=== PATIENT | male | born 1990 | race Two or more races ===

== ENCOUNTER 2016-10-12 13:12 | Emergency (ER) | payer SELFPAY ==
[2016-10-12 13:23] VITALS: BP 124/67
--- NOTE | 2016-10-12 13:32 | ER Document Report ---
ED Medical Screen (RME) - General Stated Complaint: SORE THROAT,EAR PAIN Notes: patient with sore throat with dysphgia and and b/l ear pain, nonprod cough. onset 2 days ago, denies nasal congestion, sinus congestion, productive cough, fevers (+) influenza vaccine still has his tonsils I have greeted and performed a rapid initial assessment of this patient. A comprehensive ED assessment and evaluation of the patient, analysis of test results and completion of the medical decision making process will be conducted by additional ED providers. TRAVEL OUTSIDE OF THE [place] IN LAST 30 DAYS: No - Related Data Allergies/Adverse Reactions: No Known Allergies Allergy (Verified 10/12/16 13:29) Past Medical History Neurological Medical History: Reports: Hx Migraine Infectious Medical History: Reports: Hx HIV - Immunizations Hx Diphtheria, Pertussis, Tetanus Vaccination: No Physical Exam - Vital signs Vitals: Temp Pulse Resp BP 97.9 F 58 L 16 124/67 10/12/16 13:22 10/12/16 13:22 10/12/16 13:22 10/12/16 13:22 Course - Vital Signs Vital signs: Temp Pulse Resp BP Pulse Ox 97.9 F 58 L 16 124/67 10/12/16 13:22 10/12/16 13:22 10/12/16 13:22 10/12/16 13:22
--- NOTE | 2016-10-12 14:37 | ER Document Report ---
ED ENT - General Time seen by provider: 14:05 Mode of Arrival: Ambulatory Information source: Patient TRAVEL OUTSIDE OF THE [place] IN LAST 30 DAYS: No - HPI Patient complains to provider of: Ear problem, Throat problem Onset: Other - see HPI note Associated symptoms: Cough, Ear pain, Sore throat. denies: Congestion, Fever - General Chief Complaint: Sore Throat Stated Complaint: SORE THROAT,EAR PAIN Notes: Patient is a 26-year-old male presenting to the emergency department with complaints of bilateral ear pain, sore throat, and cough. Patient states that he has had these symptoms for the past 2 days. Patient states his cough is dry. Patient's pain is exacerbated with swallowing. Patient denies any fever or congestion. Patient states he received a flu shot on August 16, 2017. Patient states that his physicians are in [place], [place]. Patient has no known allergies. (DORCAS REYES) - Related Data Allergies/Adverse Reactions: No Known Allergies Allergy (Verified 10/12/16 13:29) Past Medical History - General Information source: Patient - Social History Smoking Status: Never Smoker Cigarette use (# per day): No Chew tobacco use (# tins/day): No Frequency of alcohol use: None Drug Abuse: None Family History: None Patient has suicidal ideation: No Patient has homicidal ideation: No Neurological Medical History: Reports: Hx Migraine Infectious Medical History: Reports: Hx HIV Surgical Hx: Negative - Immunizations Hx Diphtheria, Pertussis, Tetanus Vaccination: No Hx Pneumococcal Vaccination: 10/25/13 Review of Systems - Review of Systems Constitutional: No symptoms reported. denies: Fever EENT: See HPI, Ear pain, Throat pain. denies: Nose congestion Cardiovascular: No symptoms reported Respiratory: See HPI, Cough Gastrointestinal: No symptoms reported Genitourinary: No symptoms reported Male Genitourinary: No symptoms reported Musculoskeletal: No symptoms reported Skin: No symptoms reported Hematologic/Lymphatic: No symptoms reported Neurological/Psychological: No symptoms reported -: Yes All other systems reviewed and negative Physical Exam - Vital signs Interpretation: Normal - General General appearance: Appears well, Alert In distress: Mild - HEENT Head: Normocephalic, Atraumatic Eyes: Normal Pupils: PERRL Ears: Normal External canal: Normal Tympanic membrane: Other - fluid behind the TMs bilaterally Nasal: Normal Mouth/Lips: Normal Mucous membranes: Moist Pharynx: Erythema. No: Exudate, Tonsillar hypertrophy - Respiratory Respiratory status: No respiratory distress Chest status: Nontender Breath sounds: Normal Chest palpation: Normal - Cardiovascular Rhythm: Regular Heart sounds: Normal auscultation Murmur: No - Abdominal Inspection: Normal Distension: No distension Bowel sounds: Normal Tenderness: Nontender Organomegaly: No organomegaly - Back Back: Normal, Nontender - Extremities General upper extremity: Normal inspection, Normal ROM, Normal strength General lower extremity: Normal inspection, Normal ROM, Normal strength - Neurological Neuro grossly intact: Yes Cognition: Normal Orientation: AAOx4 Gallant Coma Scale Eye Opening: Spontaneous Gallant Coma Scale Verbal: Oriented Gallant Coma Scale Motor: Obeys Commands Alexander Coma Scale Total: 15 Speech: Normal - Psychological Associated symptoms: Normal affect, Normal mood - Skin Skin Temperature: Warm Skin Moisture: Dry Course - Re-evaluation Re-evalutation: 10/12/16 15:14 Patient with stable vitals. Symptoms are consistent with upper respiratory infection. Patient is instructed to take Sudafed for the fluid behind the ears. No evidence for strep or influenza. Patient is instructed to follow-up with his doctor. He is HIV positive and his CD4 counts have been very good lately. Stable for discharge. Agrees with plan. Return if any worsening or concerning symptoms (ELENO SALAS) - Vital Signs Vital signs: Temp Pulse Resp BP Pulse Ox 97.9 F 58 L 16 124/67 10/12/16 13:22 10/12/16 13:22 10/12/16 13:22 10/12/16 13:22 (DORCAS REYES) (ELENO SALAS) Discharge - Discharge Clinical Impression: Upper respiratory infection Qualifiers: URI type: unspecified URI Qualified Code(s): J06.9 - Acute upper respiratory infection, unspecified Condition: Stable Disposition: HOME, SELF-CARE Instructions: Upper Respiratory Illness ([facility]) Additional Instructions: Please take [id number] medications as needed. Please follow-up with your doctor. Forms: Return to Work Scribe Attestation: 10/12/16 15:15 I personally performed the services described in the documentation, reviewed and edited the documentation which was dictated to the scribe in my presence, and it accurately records my words and actions. (ELENO SALAS) Scribe Documentation - Scribe Written by Scribe:: Dorcas Reyes 10/12/16 15:10 acting as scribe for :: Sarita
[2016-10-12] MEDS ORDERED: PSEUDOEPHEDRINE HCL 30 MG TABLET PO ONE (14:39)
== END 2016-10-12 15:25 | disposition home or self-care (01) ==
LOC: ER 13:12
DX: J06.9 Acute upper respiratory infection, unspecified (principal); R05 Cough; J02.9 Acute pharyngitis, unspecified; H92.03 Otalgia, bilateral; Z21 Asymptomatic human immunodeficiency virus [HIV] infection status
CPT/HCPCS: 87070; 87077; 87804; 87880; 99283

== ENCOUNTER 2017-01-21 02:37 | Emergency (ER) | payer OTHER ==
[2017-01-21] MEDS ORDERED: DEXAMETHASONE SOD PHOS INJ 10 MG/1 ML VIAL IM ONE (04:38)
[2017-01-21] MEDS ORDERED: DOXYCYCLINE HYCLATE 100 MG TABLET PO ONE (04:38)
--- NOTE | 2017-01-21 04:46 | ER Document Report ---
ED General - General Chief Complaint: Sore Throat Stated Complaint: SORE THROAT Time Seen by Provider: 01/21/17 04:32 Notes: Patient is a 26-year-old male who presents with complaint of a sore throat. When asked where his throat hurts he points to just above his voicebox. Voice has been a bit hoarse. It has been bothering him since the morning time. No fevers. No vomiting. Mild cough. No congestion. No trauma to the throat. No coughing up of blood. He complains of mild amount of mucus when he coughs. No other complaints at this time. TRAVEL OUTSIDE OF THE [place] IN LAST 30 DAYS: No - Related Data Allergies/Adverse Reactions: No Known Allergies Allergy (Verified 01/21/17 02:57) Past Medical History - Social History Smoking Status: Unknown if Ever Smoked Frequency of alcohol use: None Drug Abuse: None Family History: None Patient has suicidal ideation: No Patient has homicidal ideation: No Neurological Medical History: Reports: Hx Migraine Renal/ Medical History: Denies: Hx Peritoneal Dialysis Infectious Medical History: Reports: Hx HIV - Immunizations Hx Diphtheria, Pertussis, Tetanus Vaccination: No Hx Pneumococcal Vaccination: 10/25/13 Review of Systems - Review of Systems Notes: My Normal Review Basic REVIEW OF SYSTEMS: CONSTITUTIONAL : Denies fever, chills, or sweats. Denies recent illness. EENT: Sore throat. CARDIOVASCULAR: Denies chest pain. RESPIRATORY: Denies cough, cold, or chest congestion. Denies shortness of breath, difficulty breathing, or wheezing. GASTROINTESTINAL: Denies abdominal pain. Denies nausea, vomiting, or diarrhea. Denies constipation. Last BM: MUSCULOSKELETAL: Denies neck or back pain or joint pain or swelling. SKIN: Denies rash or skin lesions. NEUROLOGICAL: Denies altered mental status or loss of consciousness. Denies headache. Denies weakness or paralysis or loss of use of either side. Denies problems with gait or speech. Denies sensory or motor loss. ALL OTHER SYSTEMS REVIEWED AND NEGATIVE. Physical Exam - Vital signs Vitals: Temp Pulse Resp BP Pulse Ox 97.9 F 90 18 122/80 99 01/21/17 02:55 01/21/17 02:55 01/21/17 02:55 01/21/17 02:55 01/21/17 02:55 - Notes Notes: General Appearance: Well nourished, alert, cooperative, no acute distress, no obvious discomfort. Patient has a mild hoarse voice. No stridor. Vitals: reviewed, See vital signs table. Head: no swelling or tenderness to the head Eyes: PERRL, EOMI, Conjuctiva clear Mouth: No decreasd moisture Throat: No tonsillar inflammation, No airway obstruction, No lymphadenopathy Neck: Supple, no neck tenderness Lungs: No wheezing, No rales, No rhonci, No accessory muscle use, good air exchange bilaterally. Heart: Normal rate, Regular rythm, No murmur, no rub Skin: warm, dry, appropriate color, no rash Neuro: speech clear, oriented x 3, normal affect, responds appropriately to questions. Course - Vital Signs Vital signs: Temp Pulse Resp BP Pulse Ox 97.9 F 62 16 114/80 98 01/21/17 02:55 01/21/17 05:15 01/21/17 05:15 01/21/17 05:15 01/21/17 05:15 - Transfer of Care Notes: 01/21/17 06:24 He looks very comfortable on exam. He has no airway compromise. He appears to have laryngitis. I will place him on doxycycline and given dose Decadron. I encouraged him to return to the ER immediately if he has difficulty breathing, noisy breathing, or feels the symptoms are worsening in any way. Patient agrees with plan and will be discharged home. Dictation of this chart was performed using voice recognition software; therefore, there may be some unintended grammatical errors. Discharge - Discharge Clinical Impression: Laryngitis Condition: Good Disposition: HOME, SELF-CARE Additional Instructions: Laryngitis You have laryngitis. This is an inflammation of the vocal cords which leads to inability to speak normally. Any irritation to the airway can cause laryngitis. Causes include virus infection, smoke inhalation, allergy, or even trauma due to excessive talking or shouting. Rest your voice. Any vibration of the vocal cords increases and prolongs the swelling. Humidity is helpful, especially cool mist. Avoid dust, chemical fumes, and smoke. You can expect to recover completely in a few days. See the physician if new symptoms develop, such as high fever, productive cough, shortness of breath, or if you do not improve within a few days. Prescriptions: Doxycycline Hyclate 100 mg PO BID #14 capsule Forms: Return to Work
[2017-01-21 05:16] VITALS: BP 114/80
== END 2017-01-21 05:15 | disposition home or self-care (01) ==
LOC: ER 02:37
DX: J04.0 Acute laryngitis (principal); Z21 Asymptomatic human immunodeficiency virus [HIV] infection status
CPT/HCPCS: 99282; 96372; J1100

== ENCOUNTER 2017-12-20 16:53 | Emergency (ER) | payer SELFPAY ==
[2017-12-20 17:01] VITALS: BP 130/85
[2017-12-20] MEDS ORDERED: AZITHROMYCIN 250 MG TABLET PO ONE (17:52)
[2017-12-20] MEDS ORDERED: LIDOCAINE 1% INJ-PF (10 MG/ML) 30 ML SDV INJ ONE (17:52)
[2017-12-20] MEDS ORDERED: CEFTRIAXONE INJ 250 MG VIAL IM ONE (17:52)
[2017-12-20 18:17] LABS: APPEARANCE,URINE CLEAR; BILIRUBIN,URINE NEGATIVE (NEGATIVE); COLOR,URINE YELLOW; GLUCOSE, URINE NEGATIVE (NEGATIVE); KETONES,URINE NEGATIVE (NEGATIVE); LEUKOCYTE ESTERASE,URINE LARGE (NEGATIVE); NITRITE,URINE NEGATIVE (NEGATIVE); PROTEIN,URINE NEGATIVE (NEGATIVE); URINE SPECIFIC GRAVITY 1.008; UROBILINOGEN,URINE NEGATIVE mg/dL (<2.0)
--- NOTE | 2017-12-20 18:47 | ER Document Report ---
HPI - HPI Patient complains to provider of: Burning with urination and penile discharge Onset: Other Onset/Duration: Gradual Quality of pain: Burning Severity: Moderate Pain Level: 4 Context: Patient states he has been having burning with urination for a few days, penile discharge started today. Patient states he is HIV positive and has a male partner without symptoms. Patient denies fever, no nausea vomiting. Associated Symptoms: None Exacerbated by: Other - Voiding Relieved by: Denies Similar symptoms previously: No Recently seen / treated by doctor: No - ROS ROS below otherwise negative: Yes Systems Reviewed and Negative: Yes All other systems reviewed and negative - CONSTITUTIONAL Constitutional: DENIES: Fever - CARDIOVASCULAR Cardiovascular: DENIES: Chest pain - RESPIRATORY Respiratory: DENIES: Trouble Breathing - GASTROINTESTINAL Gastrointestinal: DENIES: Abdominal Pain - URINARY Urinary: REPORTS: Dysuria - burning and penile discharge - REPRODUCTIVE Reproductive: DENIES: : Past Medical History - General Information source: Patient - Social History Smoking Status: Never Smoker Chew tobacco use (# tins/day): No Frequency of alcohol use: Social Drug Abuse: None Lives with: Spouse/Significant other Family History: None Patient has suicidal ideation: No Patient has homicidal ideation: No Neurological Medical History: Reports: Hx Migraine Infectious Medical History: Reports: Hx HIV Surgical Hx: Negative - Immunizations Hx Diphtheria, Pertussis, Tetanus Vaccination: No Hx Pneumococcal Vaccination: 10/25/13 Vertical Provider Document - CONSTITUTIONAL Agree With Documented VS: Yes Exam Limitations: No Limitations General Appearance: WD/WN, No Apparent Distress - INFECTION CONTROL TRAVEL OUTSIDE OF THE [place] IN LAST 30 DAYS: No - HEENT HEENT: Normocephalic - RESPIRATORY Respiratory: Breath Sounds Normal, No Respiratory Distress - CARDIOVASCULAR Cardiovascular: Regular Rate, Regular Rhythm - GI/ABDOMEN Gastrointestinal: Abdomen Soft, Normal Bowel Sounds - NEURO Level of Consciousness: Awake, Alert, Appropriate - DERM Integumentary: Warm, Dry Course - Re-evaluation Re-evalutation: 12/20/17 21:24 Patient made aware he does have gonorrhea. He is to notify all partners to seek treatment. Patient verbalizes understanding - Vital Signs Vital signs: Temp Pulse Resp BP Pulse Ox 97.9 F 70 16 130/85 H 100 12/20/17 17:00 12/20/17 17:00 12/20/17 17:00 12/20/17 17:00 12/20/17 17:00 - Laboratory Laboratory results interpreted by me: 12/20/17 17:54 Ur Leukocyte Esterase LARGE H Discharge - Discharge Clinical Impression: Dysuria, Penile discharge, Gonorrhea Condition: Good Disposition: HOME, SELF-CARE Additional Instructions: Take antibiotics for possible UTI, urine culture pending, result usually take 3 days You will be notified of results and advise follow-up You have been treated for possible gonorrhea and chlamydia. Call [phone] around 9 PM tonight for GC/chlamydia results You must notify partner of results and advised to seek treatment Follow-up with your doctor next week for recheck Return as needed Prescriptions: Ciprofloxacin HCl [Cipro 500 mg Tablet] 500 mg PO BID #10 tablet Referrals: JORGE LUIS HOLGUIN FNP [Primary Care Provider] - Follow up as needed
[2017-12-20 20:03] LABS: CHLAM PCR NOT DETECTED (NOT DETECT); GON PCR DETECTED (NOT DETECT)
== END 2017-12-20 18:53 | disposition home or self-care (01) ==
LOC: ER 16:53
DX: R36.9 Urethral discharge, unspecified (principal); A54.9 Gonococcal infection, unspecified; R30.0 Dysuria; Z21 Asymptomatic human immunodeficiency virus [HIV] infection status
CPT/HCPCS: 99283; 96372; 87086; 87088; 81001; 87491; 87591; J3490; J0696

== ENCOUNTER 2018-01-16 03:21 | Emergency (ER) | payer OTHER ==
[2018-01-16 03:29] VITALS: BP 126/81
--- NOTE | 2018-01-16 03:43 | ER Document Report ---
HPI - HPI Pain Level: 1 Notes: Patient is a 27-year-old male with no significant past medical history presents to the ED complaining of left eye redness, matting, and drainage 2 days. Patient states that he woke up with his eye matted this morning. He states he has had pink eye in the past and wanted to come get eye drops before it gets worse. Patient does not wear contacts. He denies any other recent illness. Patient states that his eye does not feel like it is scratched, nor does he have a sensation of foreign body. Patient states that he is still able to see without any difficulties or changes in his vision. Denies any smoking or IV drug use. Denies any drug allergies. Denies any headache, fever, head injury, neck pain, URI, sore throat, chest pain, palpitations, syncope, cough, shortness of breath, wheeze, dyspnea, abdominal pain, nausea/vomiting/diarrhea, urinary retention, dysuria, hematuria, or rash. - ROS Systems Reviewed and Negative: Yes All other systems reviewed and negative - REPRODUCTIVE Reproductive: DENIES: : Past Medical History - Social History Smoking Status: Never Smoker Family History: None Neurological Medical History: Reports: Hx Migraine Renal/ Medical History: Denies: Hx Peritoneal Dialysis Infectious Medical History: Reports: Hx HIV - Immunizations Hx Diphtheria, Pertussis, Tetanus Vaccination: No Hx Pneumococcal Vaccination: 10/25/13 Vertical Provider Document - CONSTITUTIONAL Agree With Documented VS: Yes Notes: PHYSICAL EXAMINATION: GENERAL: Well-appearing, well-nourished and in no acute distress. A&Ox4 HEAD: Atraumatic, normocephalic. EYES: Pupils equal round and reactive to light, extraocular movements intact, sclera anicteric, conjunctiva left shows injection with scant purulent discharge and mild matting. Non-tender to palp of the globe and eye itself. No surrounding erythema or swelling noted. Visual acuity 20/20 b/l and in each eye (performed by myself at bedside with my own eye chart). Rt conjunctiva wnl. ENT: EAC clear b/l. TM's intact b/l without erythema, fluid, or perforation. Nares patent and without discharge. oropharynx clear without exudates. No tonsilar hypertrophy or erythema. Moist mucous membranes. No sinus tenderness. Uvula midline. No palatine shift. No airway compromise. No drooling or hoarseness. NECK: Normal range of motion, supple without lymphadenopathy. No rigidity/ meningismus. LUNGS: Breath sounds clear to auscultation bilaterally and equal. No wheezes rales or rhonchi. HEART: Regular rate and rhythm without murmurs, rubs, gallops. NEUROLOGICAL: Cranial nerves grossly intact. Normal speech, normal gait. PSYCH: Normal mood, normal affect. SKIN: Warm, Dry, normal turgor, no rashes or lesions noted. - INFECTION CONTROL TRAVEL OUTSIDE OF THE [place] IN LAST 30 DAYS: No Course - Re-evaluation Re-evalutation: 01/16/18 03:43 Patient is an afebrile, well-hydrated, 27-year-old male who presents to the ED with acute conjunctivitis of the left eye. Vitals are acceptable. PE is otherwise unremarkable. He has no significant tachycardia, tachypnea, or hypoxia. Visual acuity is intact. No labs or imaging warranted at this time based on H&P. Low suspicion for any retained corneal or lid foreign body, deep space infection including orbital cellulitis/abscess, acute glaucoma, penetrating globe injury, retinal detachment, meningitis, sepsis, fracture, compartment syndrome. I will send him home with a prescription for Polytrim to use as directed. Conservative measures otherwise for symptoms with proper handwashing. Recheck with your PCM in 3-5 days. Schedule a f/u with Ophthalmology this week if needed. Return to the ED with any worsening/ concerning symptoms otherwise as reviewed in discharge. Patient is in agreement. - Vital Signs Vital signs: Temp Pulse Resp BP Pulse Ox 97.7 F 69 16 126/81 H 98 01/16/18 03:23 01/16/18 03:23 01/16/18 03:23 01/16/18 03:23 01/16/18 03:23 Discharge - Discharge Clinical Impression: Acute conjunctivitis of left eye Qualifiers: Acute conjunctivitis type: unspecified Qualified Code(s): H10.32 - Unspecified acute conjunctivitis, left eye Condition: Stable Disposition: HOME, SELF-CARE Instructions: Eyedrop Use ([facility]), Conjunctivitis ([facility]) Additional Instructions: keep eyes clean Avoid scratching/touching eyes Wash hands regularly Use eye drops as directed Maintain adequate fluid intake tylenol/ibuprofen as needed over the counter cold medication as needed for symptoms F/u: with your PCM in 3-5 days for a recheck Consider consult with Ophthalmology for ongoing/worsening symptoms Return to the ED with any worsening symptoms and/or development of fever, headache, changes in vision, eye pain, worsening eye redness, redness around the eyes, purulent discharge, sore throat, facial swelling, neck pain/stiffness , chest pain, palpitations, syncope, shortness of breath, trouble breathing, abdominal pain, n/v/d, blood in stool/urine, dysuria, or other worsening symptoms that are concerning to you. Prescriptions: Polymyxin B Sulf/Trimethoprim [Polytrim Eye Drops] 1 drop OD Q3H #10 ml Forms: Elevated Blood Pressure Referrals: JASON WOLF MD [ACTIVE STAFF] - Follow up as needed
== END 2018-01-16 03:57 | disposition home or self-care (01) ==
LOC: ER 03:21
DX: H10.32 Unspecified acute conjunctivitis, left eye (principal); Z21 Asymptomatic human immunodeficiency virus [HIV] infection status
CPT/HCPCS: 99282

== ENCOUNTER 2018-02-06 08:22 | Emergency (ER) | payer OTHER ==
[2018-02-06 08:26] VITALS: BP 131/83
--- NOTE | 2018-02-06 08:31 | ER Document Report ---
ED GI/ - General Chief Complaint: Pain With Urination Stated Complaint: BURNING WITH URINATION Time Seen by Provider: 02/06/18 08:29 Notes: This is a 27-year-old male to the emergency department chief complaint of dysuria. States he noticed some discharge from the penis as well. Patient does endorse unprotected anal sex. Has had gonorrhea in the past as well as chlamydia. States that this feels the same as when he had chlamydia. Would like to be treated just to be safe. States he goes to the health department every 6 months for HIV and hepatitis C testing due to his lifestyle. he denies any open sores or lesions on the penis or penile shaft, scrotum. Denies any lymphadenopathy. [employer] voice dictation system was used in the transcribing of this medical document. There may be contextual errors in the drum drier which are not actual representations of the patient's history of present illness, physical exam or medical treatment and decision making plans. TRAVEL OUTSIDE OF THE [place] IN LAST 30 DAYS: No - HPI Patient complains to provider of: Dysuria - Related Data Allergies/Adverse Reactions: No Known Allergies Allergy (Verified 02/06/18 08:22) Past Medical History - General Information source: Patient - Social History Smoking Status: Never Smoker Cigarette use (# per day): No Frequency of alcohol use: None Drug Abuse: None Lives with: Alone Family History: None Neurological Medical History: Reports: Hx Migraine Renal/ Medical History: Denies: Hx Peritoneal Dialysis Infectious Medical History: Reports: Hx HIV - Immunizations Hx Diphtheria, Pertussis, Tetanus Vaccination: No Hx Pneumococcal Vaccination: 10/25/13 Review of Systems - Review of Systems Constitutional: denies: Fever, Malaise, Weakness EENT: No symptoms reported. denies: Throat pain, Difficulty swallowing, Throat swelling Cardiovascular: denies: Palpitations, Heart racing, Dyspnea Gastrointestinal: denies: Abdominal pain, Diarrhea, Nausea, Vomiting Genitourinary: Burning, Dysuria. denies: Flank pain Male Genitourinary: See HPI, Penile discharge Musculoskeletal: No symptoms reported. denies: Back pain, Muscle pain, Leg swelling Skin: denies: Change in color, Dryness, Lesions, Lumps, Rash Physical Exam - Vital signs Vitals: Temp Pulse Resp BP Pulse Ox 97.8 F 66 12 131/83 H 100 02/06/18 08:25 02/06/18 08:25 02/06/18 08:25 02/06/18 08:25 02/06/18 08:25 Interpretation: Normal - General General appearance: Appears well, Alert - Respiratory Respiratory status: No respiratory distress Chest status: Nontender Breath sounds: Normal Chest palpation: Normal - Cardiovascular Rhythm: Regular Heart sounds: Normal auscultation Murmur: No - Abdominal Inspection: Normal Distension: No distension Bowel sounds: Normal Tenderness: Nontender Organomegaly: No organomegaly - Extremities General upper extremity: Normal inspection, Nontender, Normal color, Normal ROM , Normal temperature General lower extremity: Normal inspection, Nontender, Normal color, Normal ROM , Normal temperature, Normal weight bearing. No: Andre's sign - Skin Skin Temperature: Warm Skin Moisture: Dry Skin Color: Normal Course - Re-evaluation Re-evalutation: 02/06/18 08:46 At this time we will treat empirically based on patient's presenting symptoms. Have obtained urine. Will DC on doxycycline. - Vital Signs Vital signs: Temp Pulse Resp BP Pulse Ox 97.8 F 66 12 131/83 H 100 02/06/18 08:25 02/06/18 08:25 02/06/18 08:25 02/06/18 08:25 02/06/18 08:25 Discharge - Discharge Clinical Impression: Urethritis Condition: Good Disposition: HOME, SELF-CARE Instructions: Urethritis ([facility]) Prescriptions: Doxycycline Hyclate 100 mg PO BID #14 capsule Referrals: JORGE LUIS HOLGUIN FNP [Primary Care Provider] - Follow up as needed
[2018-02-06] MEDS ORDERED: CEFTRIAXONE INJ 250 MG VIAL IM ONE (08:43)
[2018-02-06] MEDS ORDERED: DOXYCYCLINE HYCLATE 100 MG TABLET PO ONE (08:43)
[2018-02-06] MEDS ORDERED: LIDOCAINE 1% INJ-PF (10 MG/ML) 30 ML SDV ONE (09:11)
[2018-02-06 09:14] LABS: APPEARANCE,URINE CLEAR; BILIRUBIN,URINE NEGATIVE (NEGATIVE); COLOR,URINE YELLOW; GLUCOSE, URINE NEGATIVE (NEGATIVE); KETONES,URINE NEGATIVE (NEGATIVE); LEUKOCYTE ESTERASE,URINE NEGATIVE (NEGATIVE); NITRITE,URINE NEGATIVE (NEGATIVE); PROTEIN,URINE NEGATIVE (NEGATIVE); URINE SPECIFIC GRAVITY 1.005; UROBILINOGEN,URINE NEGATIVE mg/dL (<2.0)
[2018-02-06 10:31] LABS: CHLAM PCR NOT DETECTED (NOT DETECT); GON PCR NOT DETECTED (NOT DETECT)
== END 2018-02-06 09:21 | disposition home or self-care (01) ==
LOC: ER 08:22
DX: N34.2 Other urethritis (principal); R30.0 Dysuria; R36.9 Urethral discharge, unspecified
CPT/HCPCS: 99283; 96372; 81001; 87491; 87591; J0696

== ENCOUNTER 2018-03-24 09:22 | Emergency (ER) | payer OTHER ==
[2018-03-24] MEDS ORDERED: AZITHROMYCIN 250 MG TABLET PO ONE (09:49)
[2018-03-24] MEDS ORDERED: CEFTRIAXONE INJ 250 MG VIAL IM ONE (09:49)
[2018-03-24] MEDS ORDERED: LIDOCAINE 1% INJ-PF (10 MG/ML) 30 ML SDV INJ ONE (09:49)
--- NOTE | 2018-03-24 09:52 | ER Document Report ---
HPI - HPI Pain Level: Denies Notes: Patient is a 27-year-old male no significant past medical history who presents to the ED complaining of possible exposure to gonorrhea. Patient states that his fiance was tested positive for gonorrhea last week. Patient states that he is otherwise been asymptomatic, but would like testing performed. Patient is also requesting a rectal swab. He is otherwise eating and drinking without any difficulties. He is urinating normally and having normal bowel movements. Denies any drug allergies. He has not noticed any discharge. Denies any headache, fever, neck pain, URI, sore throat, chest pain, palpitations, syncope , cough, shortness of breath, wheeze, dyspnea, abdominal pain, nausea/vomiting/ diarrhea, urinary retention, dysuria, hematuria, or rash. - ROS Systems Reviewed and Negative: Yes All other systems reviewed and negative - REPRODUCTIVE Reproductive: DENIES: : Past Medical History - Social History Smoking Status: Never Smoker Family History: None Neurological Medical History: Reports: Hx Migraine Renal/ Medical History: Denies: Hx Peritoneal Dialysis Infectious Medical History: Reports: Hx HIV - Immunizations Hx Diphtheria, Pertussis, Tetanus Vaccination: No Hx Pneumococcal Vaccination: 10/25/13 Vertical Provider Document - CONSTITUTIONAL Agree With Documented VS: Yes Notes: PHYSICAL EXAMINATION: GENERAL: Well-appearing, well-nourished and in no acute distress. EYES: Pupils equal round and reactive to light, extraocular movements intact, sclera anicteric, conjunctiva are normal. ENT: Nares patent and without discharge. oropharynx clear without exudates. No tonsilar hypertrophy or erythema. Moist mucous membranes. Oropharynx clear. NECK: Normal range of motion, supple without lymphadenopathy LUNGS: Breath sounds clear to auscultation bilaterally and equal. No wheezes rales or rhonchi. HEART: Regular rate and rhythm without murmurs, rubs, gallops. ABDOMEN: Soft, nontender, nondistended abdomen. No guarding, no rebound. No masses appreciated. Normal bowel sounds present. No CVA tenderness bilaterally. Rectum: no discharge, lesions, or rash. : +circum. No urethral discharge. No rash/lesions/ulcers. No swelling or warmth. Non-tender to palp of the scrotum/testes/penis. NEUROLOGICAL: Normal speech, normal gait. PSYCH: Normal mood, normal affect. SKIN: Warm, Dry, normal turgor, no rashes or lesions noted. - INFECTION CONTROL TRAVEL OUTSIDE OF THE [place] IN LAST 30 DAYS: No Course - Re-evaluation Re-evalutation: 03/24/18 09:50 Patient is an afebrile, well-hydrated, 27-year-old male who presents to the ED for possible exposure to gonorrhea. Vitals are acceptable without any significant tachycardia, tachypnea, or hypoxia. PE is otherwise unremarkable. Coumadin gonorrhea tests are pending. Rectal swab was performed and is a send out test. Patient is otherwise asymptomatic. Rocephin and Zithromax given today. No other labs or imaging warranted at this time based on H&P. Advised patient that he should go to the health department this week for further evaluation and testing. Return to the ED with any worsening/concerning symptoms otherwise as reviewed in discharge. Patient is in agreement. - Vital Signs Vital signs: Temp Pulse Resp BP Pulse Ox 97.7 F 62 16 125/76 100 03/24/18 09:35 03/24/18 09:35 03/24/18 09:35 03/24/18 09:35 03/24/18 09:35 Discharge - Discharge Clinical Impression: Exposure to STD Condition: Stable Disposition: HOME, SELF-CARE Additional Instructions: Maintain fluids Proper hygenic technique Keep the skin clean Safe sexual practices with condoms everytime Tylenol/ibuprofen as needed Check in with the health department this week for further testing* Your chlamydia/Ghon test are pending and you will be notified if positive results; you may call in 5 days for the results as well Return immediately if symptoms worsen F/u with your PCM in 3-5 days for a recheck Return to the ED with any development of VERA/fever, trouble with vision, eye redness, worsening pain, urethral discharge, urinary retention, blood in the urine, flank pain, abdominal pain, n/v, Chest Pain, shortness of breath, joint pains, trouble breathing, or any other worsening/concerning symptoms as needed otherwise. Referrals: JORGE LUIS HOLGUIN FNP [Primary Care Provider] - Follow up in 3-5 days [facility] [NO LOCAL MD] - Follow up in 3-5 days
[2018-03-24 10:47] VITALS: BP 111/80
[2018-03-24 12:14] LABS: CHLAM PCR NOT DETECTED (NOT DETECT); GON PCR NOT DETECTED (NOT DETECT)
== END 2018-03-24 10:47 | disposition home or self-care (01) ==
LOC: ER 09:22
DX: Z20.2 Contact with and (suspected) exposure to infections with a predominantly sexual mode of transmission (principal); Z21 Asymptomatic human immunodeficiency virus [HIV] infection status
CPT/HCPCS: 99283; 96372; 87491 ×2; 87591 ×2; J3490; J0696

== ENCOUNTER 2018-06-03 21:14 | Emergency (ER) | payer OTHER ==
[2018-06-03] MEDS ORDERED: METHYLPREDNISOLONE INJ 125 MG/2 ML SDV IM ONE (23:14)
--- NOTE | 2018-06-03 23:18 | ER Document Report ---
HPI - HPI Pain Level: 5 Notes: Patient is a 28-year-old male no significant past medical history who presents to the ED complaining of nasal congestion/discharge, sinus headache, postnasal drip, dry nonproductive cough x2-3 days. Patient has not been using any over- the-counter meds for symptoms. He denies any drug allergies or IV drug use. Patient states that he did have an illness when he was on his cruise, but that had since resolved. No other significant cardiopulmonary medical history. Denies any headache, fever, neck pain, sore throat, chest pain, palpitations, syncope, shortness of breath, wheeze, dyspnea, abdominal pain, nausea/vomiting/ diarrhea, urinary retention, dysuria, hematuria, or rash. - ROS Systems Reviewed and Negative: Yes All other systems reviewed and negative - REPRODUCTIVE Reproductive: DENIES: : Past Medical History - Social History Smoking Status: Never Smoker Family History: None Neurological Medical History: Reports: Hx Migraine Renal/ Medical History: Denies: Hx Peritoneal Dialysis Infectious Medical History: Reports: Hx HIV - Immunizations Hx Diphtheria, Pertussis, Tetanus Vaccination: No Hx Pneumococcal Vaccination: 10/25/13 Vertical Provider Document - CONSTITUTIONAL Agree With Documented VS: Yes Notes: PHYSICAL EXAMINATION: GENERAL: Well-appearing, well-nourished and in no acute distress. A&Ox4. Answers questions appropriately. Moves comfortably w/o notable distress HEAD: Atraumatic, normocephalic. EYES: Pupils equal round and reactive to light, extraocular movements intact, sclera anicteric, conjunctiva are normal. ENT: EAC clear b/l. TM's intact b/l without erythema, fluid, or perforation. Nares patent and with clear discharge. oropharynx no erythema without exudates. No tonsilar hypertrophy without erythema or exudate. No palatine shift. Uvula midline. No tongue protrusion. No drooling, hoarseness, or airway compromise. Moist mucous membranes. No sinus tenderness. NECK: Normal range of motion, supple without lymphadenopathy. No rigidity/ meningismus. LUNGS: Breath sounds clear to auscultation bilaterally and equal. No wheezes rales or rhonchi. No retractions HEART: Regular rate and rhythm without murmurs, rubs, gallops. ABDOMEN: Soft, nontender, nondistended abdomen. No guarding, no rebound. No masses appreciated. Normal bowel sounds present. No CVA tenderness bilaterally. No hepatosplenomegaly. NEUROLOGICAL: Normal speech, normal gait. Normal sensory, motor exams PSYCH: Normal mood, normal affect. SKIN: Warm, Dry, normal turgor, no rashes or lesions noted. - INFECTION CONTROL TRAVEL OUTSIDE OF THE [place] IN LAST 30 DAYS: No Course - Re-evaluation Re-evalutation: 06/03/18 23:16 Patient is an afebrile, well-hydrated, 21-year-old female who presents to the ED with acute URI, suspect viral. Vitals are stable. PE is otherwise unremarkable. No labs or imaging warranted at this time based on H&P. Patient has no significant cardiopulmonary or immunocompromised medical conditions. Patient's lungs are clear to auscultation bilaterally without tachycardia, hypoxia, or tachypnea. Patient is tolerating p.o. without any difficulties. Low suspicion for any meningitis, sepsis, peritonsillar/pharyngeal abscess, respiratory compromise, severe dehydration, or other emergent systemic condition at this time. Patient is aware this condition can change from initial presentation and he needs to monitor symptoms closely. Solu-Medrol given IM today. I will send him home with a steroid taper as well as Tessalon. Conservative measures otherwise for symptoms. Recheck with your PCM in 3-5 days. Return to the ED with any worsening/concerning symptoms otherwise as reviewed in discharge. Patient is in agreement. - Vital Signs Vital signs: Temp Pulse Resp BP Pulse Ox 97.9 F 72 16 122/73 100 06/03/18 23:08 06/03/18 23:08 06/03/18 23:08 06/03/18 23:08 06/03/18 23:08 Discharge - Discharge Clinical Impression: Acute URI Condition: Stable Disposition: HOME, SELF-CARE Instructions: Upper Respiratory Illness ([facility]) Additional Instructions: Maintain adequate fluid intake Take meds as directed tylenol/ibuprofen as needed over the counter cold medication as needed for symptoms Humidified air may help Wash your hands regularly Wear a mask when coughing F/u: with your PCM in 3-5 days for a recheck Return to the ED with any fever, worsening pain, chest pain, palpitations, syncope, worsening VERA, neck pain/stiffness, shortness of breath, wheezing, drooling, trouble swallowing/breathing, abdominal pain, n/v/d, rash, or worsening/concerning symptoms otherwise. Prescriptions: Benzonatate [Tessalon Perle 100 mg Capsule] 100 mg PO Q8HP PRN #15 cap PRN Reason: Prednisone 20 mg PO ASDIR #18 tablet Referrals: JORGE LUIS HOLGUIN FNP [Primary Care Provider] - Follow up in 3-5 days
[2018-06-04 00:30] VITALS: BP 138/68
== END 2018-06-04 00:31 | disposition home or self-care (01) ==
LOC: ER 21:14
DX: J06.9 Acute upper respiratory infection, unspecified (principal); R09.81 Nasal congestion; R51 Headache; Z21 Asymptomatic human immunodeficiency virus [HIV] infection status
CPT/HCPCS: 99283; 96372; J2930

== ENCOUNTER 2019-03-04 08:17 | Emergency (ER) | payer SELFPAY ==
[2019-03-04] MEDS ORDERED: ONDANSETRON HCL INJ/PF 4 MG/2 ML SDV IV ONE (09:10)
[2019-03-04] MEDS ORDERED: NORMAL SALINE 1000 ML 1,000 ML IV ONE (09:10)
--- NOTE | 2019-03-04 09:12 | ER Document Report ---
ED General - General Chief Complaint: Vomiting/Diarrhea Stated Complaint: ABDOMINAL PAIN,VOMITING,DIARRHEA Time Seen by Provider: 03/04/19 09:10 Primary Care Provider: JORGE LUIS HOLGUIN FNP [Primary Care Provider] - Follow up in 1 week Mode of Arrival: Ambulatory Information source: Patient Notes: Patient presents emergency department with vomiting and diarrhea. Reports he ate [employer] last night. He reports that around midnight he started vomiting. Reports he vomited 3 times. Reports he has had diarrhea twice. Denies fever. Denies rash. Reports heartburn now. Patient reports he ate at [employer] with his and mother. They are not sick. Patient is HIV positive. Reports his CD4 Tcell count is within normal limits. Reports he was treated for syphillis last week at the clinic in [facility]. TRAVEL OUTSIDE OF THE [place] IN LAST 30 DAYS: No - HPI Onset: This morning - early this am- midnight Onset/Duration: Sudden Quality of pain: Cramping Pain Level: 4 Associated symptoms: Diarrhea, Vomiting Exacerbated by: Denies Relieved by: Denies Similar symptoms previously: No Recently seen / treated by doctor: No - Related Data Allergies/Adverse Reactions: No Known Allergies Allergy (Verified 03/04/19 08:18) Past Medical History - General Information source: Patient - Social History Smoking Status: Unknown if Ever Smoked Cigarette use (# per day): No Frequency of alcohol use: None Drug Abuse: None Lives with: Family Family History: None Patient has suicidal ideation: No Patient has homicidal ideation: No - Medical History Medical History: Other - HIV + Neurological Medical History: Reports: Hx Migraine Renal/ Medical History: Reports: Other - Syphillis. Denies: Hx Peritoneal Dialysis Infectious Medical History: Reports: Hx HIV Surgical Hx: Negative - Immunizations Hx Diphtheria, Pertussis, Tetanus Vaccination: No Hx Pneumococcal Vaccination: 10/25/13 Review of Systems - Review of Systems Notes: Review HPI for review of systems., All other systems negative Physical Exam - Vital signs Vitals: Temp Pulse Resp BP Pulse Ox 98.7 F 118 H 17 120/75 95 03/04/19 08:41 03/04/19 08:41 03/04/19 08:41 03/04/19 08:41 03/04/19 08:41 - Notes Notes: PHYSICAL EXAMINATION: GENERAL: Well-appearing and in no acute distress nontoxic looking HEAD: Atraumatic, normocephalic. EYES: Pupils equal round and reactive to light, extraocular movements intact, sclera anicteric, conjunctiva are normal. ENT: nares patent, oropharynx clear without exudates. Moist mucous membranes. NECK: Normal range of motion, supple without lymphadenopathy LUNGS: CTAB and equal. No wheezes rales or rhonchi. no coughing speaks in clear full sentences HEART: Regular rate and rhythm without murmurs ABDOMEN: Soft, no tenderness. No guarding, no rebound EXTREMITIES: Normal range of motion, NEUROLOGICAL: Cranial nerves grossly intact. Normal sensory/motor exams. PSYCH: Normal mood, normal affect. SKIN: Warm, Dry, normal turgor, no rashes or lesions noted Course - Re-evaluation Re-evalutation: 03/04/19 10:14 wbc slightly elevated 12.1 ,chem unremarkable. UA shows ketones specific gravity 1030. Patient slightly dehydrated. Has received 1 L of fluid. No further vomiting. 03/04/19 10:34 No further vomiting. Patient has drank 2 cups of apple juice. He reports he is feeling better. Ibuprofen was provided for headache. He was instructed on the importance of clear liquids advance as tolerated take Zofran as indicated for the nausea and follow-up with his primary care provider he verbalized understanding. Dictation of this chart was performed using voice recognition software; therefor e, there may be some unintended grammatical errors. 03/04/19 18:01 pt called, reports he is feeling better no further vomiting. Reports he is drinking fluid and eating a banana. Reports he still has some body aches. Will follow up with his provider in [place]. - Vital Signs Vital signs: Temp Pulse Resp BP Pulse Ox 98.5 F 88 16 109/54 L 99 03/04/19 10:24 03/04/19 10:24 03/04/19 10:24 03/04/19 10:24 03/04/19 10:24 - Laboratory Result Diagrams: 03/04/19 09:30 03/04/19 09:30 Laboratory results interpreted by me: 03/04/19 03/04/19 03/04/19 09:22 09:30 09:30 WBC 12.1 H RBC 5.67 H Hgb 17.1 H Seg Neutrophils % 90.3 H Lymphocytes % 6.0 L Absolute Neutrophils 10.9 H Glucose 131 H Total Protein 8.3 H Urine Protein 30 H Urine Ketones 20 H Urine Urobilinogen 4.0 H Discharge - Discharge Clinical Impression: Vomiting Qualifiers: Vomiting type: unspecified Vomiting Intractability: unspecified Nausea presence: unspecified Qualified Code(s): R11.10 - Vomiting, unspecified Diarrhea Qualifiers: Diarrhea type: unspecified type Qualified Code(s): R19.7 - Diarrhea, unspecified Condition: Stable Disposition: HOME, SELF-CARE Instructions: Antinausea Medication ([facility]), Diarrhea, Nonspecific ([facility]), Intravenous (IV) Fluids ([facility]), Vomiting ([facility]) Additional Instructions: *You have been evaluated for vomiting/diarrhea *Take zofran as prescribed *clear liquid diet, advance as tolerated *Over the counter anti-diarrheal as indicated *Ensure adequate fluid intake as discussed to prevent dehydration *Follow up with a primary care provider within one week for recheck *Return to ED for worsening condition, changes, needs Forms: Return to Work Referrals: JORGE LUIS HOLGUIN FNP [Primary Care Provider] - Follow up in 1 week
[2019-03-04 09:43] LABS: ABSOLUTE LYMPHOCYTES (AUTO) 0.7 10^3/uL (0.5-4.7); ABSOLUTE MONOCYTES (AUTO) 0.4 10^3/uL (0.1-1.4); ABSOLUTE NEUT (AUTO) 10.9 10^3/uL (1.7-8.2); BASOPHILS % (AUTO) 0.1 % (0-2); EOSINOPHILS % (AUTO) 0.3 % (0-6); HEMATOCRIT 50.1 % (37.9-51.0); HEMOGLOBIN 17.1 g/dL (13.5-17.0); MEAN CORPUSCULAR HEMOGLOBIN 30.1 pg (27.0-33.4); MEAN CORPUSCULAR HGB CONC 34.1 g/dL (32.0-36.0); MEAN CORPUSCULAR VOLUME 88 fl (80-97); MONOCYTES % (AUTO) 3.3 % (3-13); PLATELET COUNT 360 10^3/uL (150-450); RED BLOOD COUNT 5.67 10^6/uL (4.35-5.55); RED CELL DISTRIBUTION WIDTH 12.2 % (11.5-14.0); SEGMENTED NEUTROPHILS % (AUTO) 90.3 % (42-78); TOTAL CELLS COUNTED % (AUTO) 100 %; WHITE BLOOD COUNT 12.1 10^3/uL (4.0-10.5)
[2019-03-04 09:49] LABS: APPEARANCE,URINE SLIGHTLY-CLOUDY; BILIRUBIN,URINE NEGATIVE (NEGATIVE); GLUCOSE, URINE NEGATIVE (NEGATIVE); KETONES,URINE 20 mg/dL (NEGATIVE); LEUKOCYTE ESTERASE,URINE NEGATIVE (NEGATIVE); NITRITE,URINE NEGATIVE (NEGATIVE); PROTEIN,URINE 30 mg/dL (NEGATIVE)
[2019-03-04 09:50] LABS: COLOR,URINE DARK YELLOW
[2019-03-04 10:02] LABS: ALANINE AMINOTRANSFERASE 31 U/L (21-72); ALBUMIN 4.6 g/dL (3.5-5.0); ALKALINE PHOSPHATASE 117 U/L (38-126); ANION GAP 11 (5-19); ASPARTATE AMINO TRANSFERASE 31 U/L (17-59); BILIRUBIN,DIRECT 0.3 mg/dL (0.0-0.4); BILIRUBIN,TOTAL 0.7 mg/dL (0.2-1.3); BLOOD UREA NITROGEN 13 mg/dL (7-20); CALCIUM 9.7 mg/dL (8.4-10.2); CARBON DIOXIDE 28 mmol/L (22-30); CHLORIDE 101 mmol/L (98-107); GLUCOSE 131 mg/dL (75-110); POTASSIUM 4.6 mmol/L (3.6-5.0); TOTAL PROTEIN 8.3 g/dL (6.3-8.2)
[2019-03-04 10:25] VITALS: BP 109/54
[2019-03-04] MEDS ORDERED: IBUPROFEN 800 MG TABLET PO ONE (10:28)
[2019-03-04] MEDS ORDERED: ONDANSETRON ODT 4 MG TAB (6 TAB/ER DISP) PO PRN (10:34)
== END 2019-03-04 10:55 | disposition home or self-care (01) ==
LOC: ER 08:17
DX: R11.10 Vomiting, unspecified (principal); R19.7 Diarrhea, unspecified; B20 Human immunodeficiency virus [HIV] disease
CPT/HCPCS: 99284; 96361; 96374; 36415; 85025; 80053; 81001; J2405; J7030

== ENCOUNTER 2019-06-03 11:38 | Emergency (ER) | payer OTHER ==
[2019-06-03] MEDS ORDERED: CEFTRIAXONE INJ 250 MG VIAL IM ONE (11:50)
[2019-06-03] MEDS ORDERED: LIDOCAINE 1% INJ-PF (10 MG/ML) 30 ML SDV INJ ONE (11:51)
[2019-06-03] MEDS ORDERED: AZITHROMYCIN 250 MG TABLET PO ONE (11:51)
--- NOTE | 2019-06-03 11:53 | ER Document Report ---
HPI - HPI Patient complains to provider of: Penile discharge Time Seen by Provider: 06/03/19 11:45 Onset: Other - 2 days ago Onset/Duration: Sudden Pain Level: 0 Context: This 29-year-old male presents emergency department with complaints of penile discharge, possible STD exposure. He denies testicular pain or swelling. He denies genital sores. Denies pain with void. Reports he was sexually active with another individual when the condom was removed and the individual ejaculated on him. He is now experiencing penile discharge. Reports he believes he has had chlamydia in the past. Denies fever vomiting diarrhea. Reports he is eating drinking without problems. Associated Symptoms: None Exacerbated by: Denies Relieved by: Denies Similar symptoms previously: Yes Recently seen / treated by doctor: No - REPRODUCTIVE Reproductive: DENIES: : Past Medical History - General Information source: Patient - Social History Smoking Status: Never Smoker Chew tobacco use (# tins/day): No Frequency of alcohol use: None Drug Abuse: None Family History: None Patient has suicidal ideation: No Patient has homicidal ideation: No Neurological Medical History: Reports: Hx Migraine Renal/ Medical History: Denies: Hx Peritoneal Dialysis Infectious Medical History: Reports: Hx HIV - Immunizations Hx Diphtheria, Pertussis, Tetanus Vaccination: No Hx Pneumococcal Vaccination: 10/25/13 Vertical Provider Document - CONSTITUTIONAL Agree With Documented VS: Yes Exam Limitations: No Limitations General Appearance: WD/WN, No Apparent Distress - INFECTION CONTROL TRAVEL OUTSIDE OF THE [place] IN LAST 30 DAYS: No - HEENT HEENT: Atraumatic, Normocephalic. negative: Conjuctival Injection - NECK Neck: Normal Inspection, Supple. negative: Lymphadenopathy-Left, Lymphadenopathy-Right - RESPIRATORY Respiratory: Breath Sounds Normal, No Respiratory Distress - CARDIOVASCULAR Cardiovascular: Regular Rate, Regular Rhythm - GI/ABDOMEN Gastrointestinal: Abdomen Soft, Abdomen Non-Tender - BACK Back: Normal Inspection. negative: CVA Tenderness-Right, CVA Tenderness-Left - MUSCULOSKELETAL/EXTREMETIES Musculoskeletal/Extremeties: SRIKANTH LUCIANO - NEURO Level of Consciousness: Awake, Alert, Appropriate Motor/Sensory: No Motor Deficit - DERM Integumentary: Warm, Dry, No Rash Course - Re-evaluation Re-evalutation: 06/03/19 11:56 29-year-old male presents emergency department with complaints of possible exposure to chlamydia. Reports penile discharge. Denies pain with void denies testicular pain. I discussed options with the patient he could either stay and wait for 3 hours for the results. He was offered to go home and I could call him if his results came back positive for an STD or he could be treated prophylactically now. Patient requested like to be treated prophylactically now. He was also given my telephone number at this nurses station to call later on to find out the results. He was instructed to always use condoms when having sexual activity. He verbalized understanding to all instructions Dictation of this chart was performed using voice recognition software; therefore, there may be some unintended grammatical errors. 06/03/19 15:48 STD negative. Patient will be informed if he calls back. Discharge - Discharge Clinical Impression: Penile discharge, Possible exposure to STD Condition: Stable Disposition: HOME, SELF-CARE Instructions: Azithromycin ([facility]), Chlamydia ([facility]), Gonorrhea ([facility]), [facility], Rocephin ([facility]) Additional Instructions: *You have been evaluated for penile discharge possible STD exposure *You have been treated with Rocephin and Zithromax *Follow up with your primary care provider or the health department within 1 week for recheck *Avoid sexual intercourse until follow up You may call Located Within [facility] at [phone] later today for your results. *Return to ED for worsening condition, changes, needs Referrals: JORGE LUIS HOLGUIN FNP [Primary Care Provider] - Follow up in 1 week
[2019-06-03 13:36] LABS: CHLAM PCR NOT DETECTED (NOT DETECT)
== END 2019-06-03 12:16 | disposition home or self-care (01) ==
LOC: ER 11:38
DX: R36.9 Urethral discharge, unspecified (principal); Z20.2 Contact with and (suspected) exposure to infections with a predominantly sexual mode of transmission; Z21 Asymptomatic human immunodeficiency virus [HIV] infection status
CPT/HCPCS: 87491; 87591; J3490; J0696

== ENCOUNTER 2019-11-22 16:56 | Emergency (ER) | payer BC, OTHER ==
[2019-11-22] MEDS ORDERED: ACETAMINOPHEN 325 MG TABLET PO ONE (17:21)
[2019-11-22] MEDS ORDERED: NORMAL SALINE 500 ML IV ONE (17:21)
--- NOTE | 2019-11-22 17:31 | ER Document Report ---
HPI - HPI Time Seen by Provider: 11/22/19 17:09 Pain Level: 3 Notes: Patient is a 29-year-old male who presents to the ED complaining of nasal congestion/discharge, dry nonproductive cough, fever, body ache 2 days. Pt is HIV + and had recent CD counts that were over 12k. Patient states that he is still eating and drinking without difficulties, but does have a decreased p.o. intake. He is still urinating normally having normal bowel movements. Patient has been using some [id number] meds for symptoms. He denies any significant past medical history including cardiopulmonary history and immunocompromised conditions. Pt states that a coworker is a PUI and has COVID test pending. Denies any current headache, neck pain, sore throat, chest pain, palpitations, syncope, shortness of breath, wheeze, dyspnea, abdominal pain, nausea/vomiting/diarrhea, urinary retention, dysuria, hematuria, or rash. - ROS Systems Reviewed and Negative: Yes All other systems reviewed and negative - CONSTITUTIONAL Constitutional: DENIES: Fever, Chills - RESPIRATORY Respiratory: REPORTS: Coughing - REPRODUCTIVE Reproductive: DENIES: : Past Medical History - Social History Smoking Status: Never Smoker Frequency of alcohol use: Occasional Family History: None Patient has suicidal ideation: No Patient has homicidal ideation: No Neurological Medical History: Reports: Hx Migraine Renal/ Medical History: Denies: Hx Peritoneal Dialysis Infectious Medical History: Reports: Hx HIV - Immunizations Hx Diphtheria, Pertussis, Tetanus Vaccination: No Hx Pneumococcal Vaccination: 10/25/13 Vertical Provider Document - CONSTITUTIONAL Agree With Documented VS: Yes Notes: PHYSICAL EXAMINATION: GENERAL: Well-appearing, well-nourished and in no acute distress. A&Ox4. Answers questions appropriately. Moves comfortably w/o notable distress HEAD: Atraumatic, normocephalic. EYES: Pupils equal round and reactive to light, extraocular movements intact, sclera anicteric, conjunctiva are normal. ENT: Nares patent and with clear discharge. oropharynx no erythema without exudates. No tonsilar hypertrophy without erythema or exudate. No palatine shift. Uvula midline. No tongue protrusion. No drooling, hoarseness, or airway compromise. Moist mucous membranes. No sinus tenderness. NECK: Normal range of motion, supple without lymphadenopathy. No rigidity/meningismus. LUNGS: Breath sounds clear to auscultation bilaterally and equal. No wheezes rales or rhonchi. No retractions HEART: Regular rate and rhythm without murmurs, rubs, gallops. ABDOMEN: Soft, nontender, nondistended abdomen. No guarding, no rebound. Normal bowel sounds present. No CVA tenderness bilaterally. NEUROLOGICAL: Normal speech, normal gait. PSYCH: Normal mood, normal affect. SKIN: Warm, Dry, normal turgor, no rashes or lesions noted. - INFECTION CONTROL TRAVEL OUTSIDE OF THE [place] IN LAST 30 DAYS: No Course - Re-evaluation Re-evalutation: 11/22/[address] orantes who is in agreement with dispo/plan and no covid testing. Patient is an afebrile, well-hydrated, 29-year-old male who presents to the ED with influenza a/B. Vitals are acceptable. PE is otherwise unremarkable. Rapid strep neg. CXR negative. No other labs or imaging warranted at this time based on H&P. Patient's lungs are clear to auscultation bilaterally without tachycardia, hypoxia, or tachypnea. Patient is tolerating p.o. without any difficulties. Thoroughly reviewed the risks, benefits, potential side effects, estimated cost without insurance with patient who has HIV. After thorough review, patient agreed to Tamiflu at this time. Low suspicion for any meningitis, sepsis, peritonsillar/pharyngeal abscess, respiratory compromise, severe dehydration, or other emergent systemic condition at this time. Patient is aware this condition can change from initial presentation and he needs to monitor symptoms closely. Conservative measures otherwise for symptoms. Recheck with your PCM in 3-5 days. I still recommend quarantine for 1 week until resolution of symptoms. Return to the ED with any worsening/concerning symptoms otherwise as reviewed in discharge. Patient is in agreement. - Vital Signs Vital signs: Temp Pulse Resp BP Pulse Ox 100.3 F 88 18 130/92 H 100 11/22/19 17:11 11/22/19 17:11 11/22/19 17:11 11/22/19 17:11 11/22/19 17:11 Discharge - Discharge Clinical Impression: Influenza Condition: Stable Disposition: HOME, SELF-CARE Instructions: Upper Respiratory Illness ([facility]) Additional Instructions: It will still be gauthier to stay quarantined until you are completely symptom-free at least 1 week. Maintain adequate fluid intake tylenol/ibuprofen as needed alternating every 3 hours for fever/body ache over the counter cold medication as needed for symptoms Humidified air may help Wash your hands regularly Wear a mask when coughing F/u: with your PCM in 3-5 days for a recheck Return to the ED with any fever, altered mental status/behavior, chest pain, palpitations, syncope, headache, neck pain/stiffness, shortness of breath, chest pains, wheezing, drooling, trouble swallowing/breathing, abdominal pain, n/v/d, rash, or worsening/concerning symptoms otherwise. Prescriptions: Benzonatate [Tessalon Perles 100 mg Capsule] 100 mg PO Q8HP PRN #15 capsule PRN Reason: Albuterol Sulfate [Proair HFA Inhalation Aerosol 8.5 gm MDI] 2 puff IH Q4H PRN #1 mdi PRN Reason: Inhaler, Assist Devices [Space Chamber Plus] 1 each MC ASDIR PRN #1 spacer PRN Reason: Oseltamivir Phosphate [Tamiflu 75 mg Capsule] 75 mg PO BID #10 capsule Forms: Elevated Blood Pressure, Return to Work Referrals: JORGE LUIS HOLGUIN FNP [Primary Care Provider] - Follow up in 3-5 days
--- NOTE | 2019-11-22 17:57 | RADIOLOGY REPORT (SQ) ---
EXAM DESCRIPTION: CHEST SINGLE VIEW COMPLETED DATE/TIME: 11/22/2019 5:45 pm REASON FOR STUDY: cough/fever COMPARISON: None. EXAM PARAMETERS: NUMBER OF VIEWS: One view. TECHNIQUE: Single frontal radiographic view of the chest acquired. RADIATION DOSE: NA LIMITATIONS: None. FINDINGS: LUNGS AND PLEURA: No consolidation, pneumothorax or pleural effusion. MEDIASTINUM AND HILAR STRUCTURES: Contour normal. HEART AND VASCULAR STRUCTURES: Heart normal in size. Normal vasculature. BONES: No acute findings. HARDWARE: None in the chest. IMPRESSION: NO ACUTE RADIOGRAPHIC FINDING IN THE CHEST. TECHNICAL DOCUMENTATION: JOB ID: [id number] 2010 [employer]- All Rights Reserved Reading location - IP/workstation name: [email or web address]
[2019-11-22 19:03] LABS: A TYPE INFLUENZA AG POSITIVE (NEGATIVE); B INFLUENZA AG POSITIVE (NEGATIVE)
[2019-11-22 19:54] VITALS: BP 115/76
== END 2019-11-22 19:54 | disposition home or self-care (01) ==
LOC: ER 16:56
DX: J10.1 Influenza due to other identified influenza virus with other respiratory manifestations (principal); R05 Cough; R50.9 Fever, unspecified; Z21 Asymptomatic human immunodeficiency virus [HIV] infection status
CPT/HCPCS: 99283; 96360; 87070; 87880; 87804; 71045; J7040

== ENCOUNTER → 2020-09-13 | Outpatient (CLI) | payer BC ==
--- NOTE | 2020-09-13 15:40 | RADIOLOGY REPORT (SQ) ---
EXAM DESCRIPTION: CHEST 2 VIEWS IMAGES COMPLETED DATE/TIME: 09/13/2020 2:49 pm REASON FOR STUDY: (R05)COUGH COMPARISON: 11/22/2019 EXAM PARAMETERS: NUMBER OF VIEWS: two views TECHNIQUE: Digital Frontal and Lateral radiographic views of the chest acquired. RADIATION DOSE: NA LIMITATIONS: none FINDINGS: LUNGS AND PLEURA: No opacities, masses or pneumothorax. No pleural effusion. MEDIASTINUM AND HILAR STRUCTURES: No masses or contour abnormalities. HEART AND VASCULAR STRUCTURES: Heart normal size. No evidence for failure. BONES: No acute findings. HARDWARE: None in the chest. OTHER: No other significant finding. IMPRESSION: NO ACUTE RADIOGRAPHIC FINDING IN THE CHEST. TECHNICAL DOCUMENTATION: JOB ID: [id number] 2010 [employer]- All Rights Reserved Reading location - IP/workstation name: [email or web address]
== END ==
LOC: RAD 14:24
PROVIDERS: ATTEND Nurse Practitioner
DX: R05 Cough (principal)
CPT/HCPCS: 71046